=== PATIENT | female | born 1965 | race Caucasian/White ===

== ENCOUNTER → 2017-05-08 | Day surgery (SDC) | payer BC ==
[~2017-05-08] MED LIST: ALBUTEROL PO; BYDUREON2 MG SQ; DICLOFENAC SODI75 MG PO; FENOFIBRATE145 MG PO; GLIMEPIRIDE2 MG PO; INSULIN REGULAR, HUMAN 100 UNIT/1 ML 3ML VIAL ONE; IPATROPIUM PO; LEVOTHYROXINE50 MCG PO; LYRICA50 MG PO; METFORMIN HCL500 MG PO; METFORMIN HCL850 MG PO; METOPROLOL SUCC25 MG PO; METOPROLOL SUCCINATE 25 MG TAB XL PO SCH; NATEGLINIDE60 MG PO; OMEPRAZOLE40 MG PO; PHENYTOIN SODIUM EXT REL 100 MG CAP PO SCH; PHENYTOIN100 MG/4 M PO; PRAVASTATIN SOD40 MG PO; PROPOFOL IV EMULSION 10 MG/ML 50 ML VIAL ONE; toujeo SC
[2017-05-08 08:11] LABS: ANION GAP 16.8 mmol/L (8-16); CALCIUM 9.4 mg/dL (8.4-10.2); CREATININE, SERUM 0.99 mg/dL (0.57-1.11); POTASSIUM 3.8 mmol/L (3.5-5.1)
== END | disposition home or self-care (01) ==
LOC: OR 06:26
PROVIDERS: ATTEND Internal Medicine Gastroenterology
DX: R13.19 Other dysphagia (principal); K29.70 Gastritis, unspecified, without bleeding; K44.9 Diaphragmatic hernia without obstruction or gangrene; K31.84 Gastroparesis; K21.9 Gastro-esophageal reflux disease without esophagitis; K59.1 Functional diarrhea; E08.9 Diabetes mellitus due to underlying condition without complications; E03.9 Hypothyroidism, unspecified; I10 Essential (primary) hypertension; E78.5 Hyperlipidemia, unspecified; R07.89 Other chest pain; R56.9 Unspecified convulsions; G47.33 Obstructive sleep apnea (adult) (pediatric); I25.2 Old myocardial infarction; Z01.810 Encounter for preprocedural cardiovascular examination; Z68.42 Body mass index [BMI] 45.0-49.9, adult; Z80.0 Family history of malignant neoplasm of digestive organs
CPT/HCPCS: 36415; 43239; 45378; 80048; 82948; 93005

== ENCOUNTER → 2017-07-10 | Day surgery (SDC) | payer BC ==
[~2017-07-10] MED LIST changes: +ALBUTEROL INH; +COMBIVENT RESPIM4 GM INH; +DICLOFENAC PO; +DILANTIN50 MG PO; +DIOVAN HCT 3201 EAC1 PO; +DIOVAN160 MG PO; +FENOFIBRATE PO; +FENTANYL CITRATE/PF 100MCG/2 ML INJ ONE; +GLIMEPIRIDE PO; -INSULIN REGULAR, HUMAN 100 UNIT/1 ML 3ML VIAL ONE; +LEVOTHYROXINE PO; +LYRICA PO; +LYRICA75 MG PO; +METFORMIN PO; +METOPROLOL PO; -METOPROLOL SUCCINATE 25 MG TAB XL PO SCH; +MIDAZOLAM HCL 2 MG/2 ML VIAL ONE; +PHENYTOIN PO; -PHENYTOIN SODIUM EXT REL 100 MG CAP PO SCH; +POTASSIUM CHLO10 ME1 PO; +PRAVASTATIN PO; +RANITIDINE PO; +TOUJEO SC; +TOUJEO SQ; +TRICOR48 MG PO; +VALSARTAN/HCTZ; +[UNRECOGNIZED DRUG - OTHER] PO; +omeprazole PO
== END | disposition home or self-care (01) ==
LOC: OR 10:03
PROVIDERS: ATTEND Internal Medicine Gastroenterology
DX: Z12.11 Encounter for screening for malignant neoplasm of colon (principal); D12.3 Benign neoplasm of transverse colon; R19.7 Diarrhea, unspecified; K21.9 Gastro-esophageal reflux disease without esophagitis; K76.0 Fatty (change of) liver, not elsewhere classified; E03.9 Hypothyroidism, unspecified; I10 Essential (primary) hypertension; E11.9 Type 2 diabetes mellitus without complications; E78.5 Hyperlipidemia, unspecified; R56.9 Unspecified convulsions; G47.33 Obstructive sleep apnea (adult) (pediatric); I25.10 Atherosclerotic heart disease of native coronary artery without angina pectoris; I25.2 Old myocardial infarction; Z68.42 Body mass index [BMI] 45.0-49.9, adult; Z80.0 Family history of malignant neoplasm of digestive organs
CPT/HCPCS: 36415; 45385; 82948; J2250

== ENCOUNTER → 2017-09-11 | Day surgery (SDC) | payer BC ==
[~2017-09-11] MED LIST changes: -FENTANYL CITRATE/PF 100MCG/2 ML INJ ONE; +INSULIN REGULAR, HUMAN 100 UNIT/1 ML 3ML VIAL ONE; +KETAMINE HCL INJ 50 MG/ML 10 ML VIAL ONE; +LIDOCAINE HCL 2% LOCAL INJ 5 ML SDV VIAL INJ ONE; +PHENYTOIN SODIUM IV SCH; +PROPOFOL IV EMULSION 10 MG/ML 20 ML VIAL ONE; -PROPOFOL IV EMULSION 10 MG/ML 50 ML VIAL ONE; +SODIUM CHLORIDE 0.9% IV SCH
== END | disposition home or self-care (01) ==
LOC: OR 07:02
PROVIDERS: ATTEND Internal Medicine Gastroenterology
DX: Z12.11 Encounter for screening for malignant neoplasm of colon (principal); D12.2 Benign neoplasm of ascending colon; D12.3 Benign neoplasm of transverse colon; K57.30 Diverticulosis of large intestine without perforation or abscess without bleeding; K64.8 Other hemorrhoids; R19.7 Diarrhea, unspecified; K31.89 Other diseases of stomach and duodenum; G40.909 Epilepsy, unspecified, not intractable, without status epilepticus; J45.909 Unspecified asthma, uncomplicated; I25.10 Atherosclerotic heart disease of native coronary artery without angina pectoris; I10 Essential (primary) hypertension; E11.9 Type 2 diabetes mellitus without complications; E03.9 Hypothyroidism, unspecified; G47.30 Sleep apnea, unspecified; K75.81 Nonalcoholic steatohepatitis (NASH); R76.8 Other specified abnormal immunological findings in serum; E78.2 Mixed hyperlipidemia; Z88.0 Allergy status to penicillin; Z88.5 Allergy status to narcotic agent; Z88.8 Allergy status to other drugs, medicaments and biological substances; Z01.810 Encounter for preprocedural cardiovascular examination; Z68.42 Body mass index [BMI] 45.0-49.9, adult; Z80.0 Family history of malignant neoplasm of digestive organs
CPT/HCPCS: 36415; 45384; 80185; 82948; 93005; J1165; J2001; J2250; J7050; 45378; 45380